=== PATIENT | female | born 1985 | race African-American/Black ===

== ENCOUNTER 2016-11-13 09:43 | Outpatient (CLI) | payer OTHER ==
[2016-11-13] VITALS (25 sets, daily range): BP systolic 134–180; BP diastolic 69–111
[~2016-11-13] VITALS: Ht 170.2 cm; Wt 131.5 kg
[~2016-11-13 09:43] MED LIST: ATIVAN1 MG PO; COLACE100 MG PO; ENDOCET 5-3251 EACH PO; FEOSOL325 MG PO; IBUPROFEN800 MG PO; LABETALOL HCL200 MG PO; MACROBID100 MG PO; Macrobid PO; NIFEDIPINE ER60 MG PO; NOHOMEMEDS; PHENERGAN25 MG PR; PRENATAL TABLE1 EAC3 PO; REGLAN10 MG PO; TAMIFLU75 MG PO; TYLENOL EXTRA500 MG PO; Tamiflu PO; ZOFRAN ODT4 MG PO
[2016-11-13 10:53] LABS: ADD MIUA? YES; BILIRUBIN NEGATIVE; BLOOD MODERATE; COLOR DK YELLOW ((YELLOW)); GLUCOSE (STRIP) NEGATIVE; KETONES 15; LEUKOCYTES TRACE; NITRITE NEGATIVE; PH, URINE 6.5 (5-8); PROTEIN (STRIP) TRACE; SPECIFIC GRAVITY 1.023 (1.000-1.030)
[2016-11-13 11:04] LABS: EOSINOPHIL (%) 0.4 % (0-5); HEMATOCRIT 37.4 % (36.0-46.0); IMMATURE GRANULOCYTE (%) 0.4 % (0.0-0.7); LYMPHOCYTE COUNT 2.4 K/uL (1.0-2.8); MCH 30.2 PG (29.0-34.0); MCV 88.8 FL (83-99); MONOCYTE (%) 8.9 % (3-12); MONOCYTE COUNT 0.8 K/uL (0-0.8); NEUTROPHIL (%) 62.1 % (45-76); NEUTROPHIL COUNT 5.3 K/uL (1.8-6.4); PLATELET COUNT 286 K/uL (156-360); RBC DIS.WIDTH-CV 14.7 % (11.8-14.6); RBC DIS.WIDTH-SD 47.8 % (39-53); RED BLOOD COUNT 4.21 M/uL (3.80-5.20); WHITE BLOOD COUNT 8.5 K/uL (4.1-10.2)
[2016-11-13 11:10] LABS: BACTERIA 2+; CRYSTALS NONE SEEN; PATHOLOGICAL CAST NONE SEEN; RED BLOOD CELLS 20-30 /HPF (0-5); SMALL ROUND CELL NONE SEEN; YEAST-LIKE CELL NONE SEEN
[2016-11-13 11:22] LABS: FIBRINOGEN 290 MG/DL (160-450); PROTHROMBIN TIME 10.4 (9.2-11.2); PTT 27.1 (25-32)
[2016-11-13 11:25] LABS: AMPHETAMINES QUANT VALUE 0 NG/ML; BARBITUATES QUANT VALUE 0 NG/ML; BENZODIAZEPINES QUANT VALUE 0 NG/ML; BENZODIAZEPINES, URINE SCREEN Negative (200 ng/mL); OPIATES QUANTITATIVE VALUE 0 NG/ML; PHENCYCLIDINE QUANT VALUE 0 NG/ML
[2016-11-13 11:28] LABS: EPITHELIAL CELLS 3+; MUCUS 2+
[2016-11-13 11:29] LABS: CASTS NONE SEEN /LPF
[2016-11-13 11:35] LABS: ANION GAP 8 MEQ/L (2-14); CHLORIDE 102 MEQ/L (99-109); POTASSIUM 3.4 MEQ/L (3.7-5.4); SAMPLE HEMOLYSIS CHECK 0; SAMPLE ICTERIC CHECK 0; SAMPLE LIPEMIA CHECK 0; SODIUM 133 MEQ/L (136-147)
[2016-11-13 11:40] LABS: ALKALINE PHOSPHATASE 52 IU/L (3-129); GFR ESTIMATE (CALCULATED) > 59 mL/min/; GLUCOSE 86 mg/dL (70-99); LACTATE DEHYDROGENASE 129 IU/L (20-246); UREA NITROGEN (BUN) 5 mg/dL (9-23); URIC ACID 6.7 mg/dL (3.1-9.2)
[2016-11-13 11:41] LABS: UR CREATININE CONCENTRATION 357.2 MG/DL
[2016-11-14 10:04] LABS: TREPONEMA ANTIBODY NEGATIVE (NEGATIVE)
[2016-11-14 12:05] LABS: HBSG INDEX 0.21
[2016-11-14 12:06] LABS: HIV INDEX 0.08; HIV-1/2 AB/AG COMBO Nonreactive
[2016-11-15 13:44] LABS: CHLAMYDIA TRACHOMATIS NEGATIVE; NEISSERIA GONORRHOEAE NEGATIVE
== END 2016-11-13 18:11 | disposition designated cancer center or children's hospital, planned readmission (85) ==
LOC: LDRP-OP 09:43 → EDSTATUS 09:44 → 2WEST 09:44
PROVIDERS: Obstetrics & Gynecology
DX: R10.9 Unspecified abdominal pain (principal); O36.8120 Decreased fetal movements, second trimester, not applicable or unspecified; O99.89 Other specified diseases and conditions complicating pregnancy, childbirth and the puerperium; Z3A.23 23 weeks gestation of pregnancy
CPT/HCPCS: 59025; 76805; 80053; 81003; 82570; 83615; 84156; 84550; 85025; 85384; 85610; 85730; 86703; 86762; 86780; 86850; 86900; 86901; 87086; 87340; 87491; 87591; G0378; J3475; J7120

== ENCOUNTER 2018-02-12 02:02 | Inpatient (IN) | payer OTHER ==
[~2018-02-12] VITALS: Ht 170.2 cm; Wt 136.3 kg
[2018-02-12 03:11] LABS: MCH 30.9 PG (29.0-34.0); MCV 88.3 FL (83-99); PLATELET COUNT 247 K/uL (156-360); RBC DIS.WIDTH-CV 12.9 % (11.8-14.6); RBC DIS.WIDTH-SD 42.1 % (39-53); RED BLOOD COUNT 4.53 M/uL (3.80-5.20)
[2018-02-12 03:20] LABS: ALBUMIN 3.8 g/dL (3.2-4.8); CHLORIDE 108 mEq/L (99-109); POTASSIUM 3.6 mEq/L (3.7-5.4); SODIUM 137 mEq/L (136-147)
[2018-02-12 03:22] LABS: GLUCOSE 122 mg/dL (70-99)
[2018-02-12 03:23] LABS: TOTAL PROTEIN 7.1 g/dL (6.4-8.3)
[2018-02-12 03:24] LABS: TOTAL BILIRUBIN 1.1 mg/dL (0.0-1.0)
[2018-02-12 03:26] LABS: ALKALINE PHOSPHATASE 81 IU/L (3-129); CREATININE 0.9 mg/dL (0.6-1.3); GFR ESTIMATE (CALCULATED) > 59 mL/min/
[2018-02-12 03:27] LABS: UREA NITROGEN (BUN) 8 mg/dL (9-23)
[2018-02-12 03:28] LABS: AST (GOT) 13 IU/L (2-34)
[2018-02-12 03:29] LABS: ALT (GPT) 13 IU/L (3-49)
[2018-02-12 03:34] LABS: MONOSPOT (MONONUCLEOSIS SEROL) NEGATIVE
[2018-02-12 03:35] LABS: QUANTITATIVE HCG < 4.0 MIU/ML
[2018-02-12 05:43] LABS: BASOPHIL (%) 0.4 % (0-1); BASOPHIL COUNT 0.1 K/uL (0-0.1); EOSINOPHIL (%) 0 % (0-5); IMMATURE GRANULOCYTE (%) 1.5 % (0.0-0.7); LYMPHOCYTE (%) 3.8 % (15-42); LYMPHOCYTE COUNT 0.8 K/uL (1.0-2.8); MONOCYTE (%) 8.3 % (3-12); MONOCYTE COUNT 1.6 K/uL (0-0.8); NEUTROPHIL COUNT 16.9 K/uL (1.8-6.4)
[2018-02-12 10:30] VITALS: BP 175/96
[2018-02-12 11:44] VITALS: BP 147/87
[2018-02-12 15:25] VITALS: BP 143/90
[2018-02-12 20:21] VITALS: BP 183/96
[2018-02-13] VITALS (7 sets, daily range): BP systolic 160–181; BP diastolic 80–109
[2018-02-13 07:11] LABS: HEMATOCRIT 40.6 % (36.0-46.0); HEMOGLOBIN 13.5 G/DL (11.9-15.5); MCH 29.2 PG (29.0-34.0); MCHC 33.3 G/DL (30.0-36.0); MCV 87.7 FL (83-99); PLATELET COUNT 260 K/uL (156-360); RBC DIS.WIDTH-CV 12.9 % (11.8-14.6); RBC DIS.WIDTH-SD 41.9 % (39-53); RED BLOOD COUNT 4.63 M/uL (3.80-5.20); WHITE BLOOD COUNT 18.7 K/uL (4.1-10.2)
[2018-02-13 07:48] LABS: CHLORIDE 110 MEQ/L (99-109); CREATININE 0.7 MG/DL (0.6-1.3); GFR ESTIMATE (CALCULATED) > 59 mL/min/; GLUCOSE 141 mg/dL (70-99); POTASSIUM 4.4 MEQ/L (3.7-5.4); SODIUM 140 MEQ/L (136-147); UREA NITROGEN (BUN) 12 mg/dL (9-23)
[2018-02-13 08:00] LABS: ALBUMIN 3.5 G/DL (3.2-4.8); ALKALINE PHOSPHATASE 67 IU/L (3-129); ALT (GPT) 10 IU/L (3-49); AST (GOT) 10 IU/L (2-34); DIRECT BILIRUBIN 0.2 mg/dL (0.0-0.3); TOTAL BILIRUBIN 0.6 MG/DL (0.0-1.0); TOTAL PROTEIN 6.3 G/DL (6.4-8.3)
[2018-02-14 04:15] VITALS: BP 170/85
[2018-02-14 05:31] LABS: BASOPHIL (%) 0.1 % (0-1); EOSINOPHIL (%) 0 % (0-5); HEMATOCRIT 39.3 % (36.0-46.0); IMMATURE GRANULOCYTE (%) 2.1 % (0.0-0.7); LYMPHOCYTE (%) 8.5 % (15-42); LYMPHOCYTE COUNT 1.3 K/uL (1.0-2.8); MCH 29.3 PG (29.0-34.0); MCHC 33.1 G/DL (30.0-36.0); MCV 88.7 FL (83-99); MONOCYTE (%) 5.2 % (3-12); MONOCYTE COUNT 0.8 K/uL (0-0.8); NEUTROPHIL (%) 84.1 % (45-76); PLATELET COUNT 289 K/uL (156-360); RBC DIS.WIDTH-CV 13.2 % (11.8-14.6); RBC DIS.WIDTH-SD 43.1 % (39-53); RED BLOOD COUNT 4.43 M/uL (3.80-5.20); WHITE BLOOD COUNT 15.5 K/uL (4.1-10.2)
[2018-02-14 06:02] LABS: CHLORIDE 111 MEQ/L (99-109); CREATININE 0.9 MG/DL (0.6-1.3); GFR ESTIMATE (CALCULATED) > 59 mL/min/; GLUCOSE 138 mg/dL (70-99); POTASSIUM 4.1 MEQ/L (3.7-5.4); SODIUM 142 MEQ/L (136-147); UREA NITROGEN (BUN) 16 mg/dL (9-23)
[2018-02-14 07:05] VITALS: BP 175/108
[2018-02-14 15:40] VITALS: BP 197/119
[2018-02-14 17:45] VITALS: BP 178/111
[2018-02-14 19:12] VITALS: BP 166/96
[2018-02-15] VITALS (7 sets, daily range): BP systolic 138–182; BP diastolic 84–94
[2018-02-15 06:43] LABS: HEMATOCRIT 39.4 % (36.0-46.0); HEMOGLOBIN 13.2 G/DL (11.9-15.5); MCH 29.1 PG (29.0-34.0); MCHC 33.5 G/DL (30.0-36.0); PLATELET COUNT 314 K/uL (156-360); RBC DIS.WIDTH-CV 13.1 % (11.8-14.6); RBC DIS.WIDTH-SD 41.5 % (39-53); RED BLOOD COUNT 4.53 M/uL (3.80-5.20); WHITE BLOOD COUNT 17.2 K/uL (4.1-10.2)
[2018-02-15 07:10] LABS: CHLORIDE 107 MEQ/L (99-109); CREATININE 0.8 MG/DL (0.6-1.3); GFR ESTIMATE (CALCULATED) > 59 mL/min/; POTASSIUM 3.8 MEQ/L (3.7-5.4); SODIUM 141 MEQ/L (136-147); UREA NITROGEN (BUN) 12 mg/dL (9-23)
[2018-02-15 07:12] LABS: GLUCOSE 100 mg/dL (70-99)
[2018-02-15 07:23] LABS: ABS NEUTROPHIL COUNT 12.2; ATYPICAL LYMPHOCYTE 2.6 %; BAND NEUTROPHILS 2.6 % (0-8.0); EOSINOPHIL ABS CT 0; LYMPHOCYTES 21.9 % (15.0-45.0); MONOCYTES 2.6 % (0-9.0); MYELOCYTES 1.8 %; PLAT.SUFFICIENCY ADEQUATE; SEG.NEUTROPHILS 68.5 % (46.0-76.0)
[2018-02-16 00:22] VITALS: BP 132/81
[2018-02-16 04:03] VITALS: BP 154/91
[2018-02-16 07:25] VITALS: BP 157/108
[2018-02-16 11:50] VITALS: BP 158/88
[2018-02-16] MEDS ORDERED: AUGMENTIN875 MG PO (11:57)
[2018-02-16] MEDS ORDERED: NIFEDIPINE ER30 MG PO (12:33)
[2018-02-16] MEDS ORDERED: TYLENOL REGULA325 MG PO (12:33)
[2018-02-16] MEDS ORDERED: LABETALOL HCL200 MG PO (12:33)
[2018-02-16] MEDS ORDERED: PREDNISONE10 MG PO (12:39)
[2018-02-16] MEDS ORDERED: PEPCID20 MG PO (12:40)
== END 2018-02-16 13:51 | disposition home or self-care (01) | DRG 153 ==
LOC: EME → EDBD 02:02 → EXP 02:02 → EDOF 08:52 → 2EAST 08:52 → ENRESERV 08:54 → 2EAST 10:32
PROVIDERS: Internal Medicine; Physician Assistant; Student in an Organized Health Care Education/Training Program
PROC: 0CJS8ZZ Inspection of Larynx, Via Natural or Artificial Opening Endoscopic (ICD-10-PCS; principal; 2018-02-12)
DX: J03.00 Acute streptococcal tonsillitis, unspecified (principal); R78.81 Bacteremia; J05.10 Acute epiglottitis without obstruction; B95.0 Streptococcus, group A, as the cause of diseases classified elsewhere; I10 Essential (primary) hypertension; E66.01 Morbid (severe) obesity due to excess calories; Z91.19 Patient's noncompliance with other medical treatment and regimen; I16.0 Hypertensive urgency; Z68.42 Body mass index [BMI] 45.0-49.9, adult
CPT/HCPCS: 70491; 80048; 80053; 80076; 82948; 83605; 84702; 85025; 85027; 85651; 86308; 87040; 87077; 87186; 87651 90; 87801; 94640; 94640 76; 94799; 99202; 99281; 99285; J0295; J0360; J1100; J1650; J1885; J2540; J2543; J3010; J3370; J7030; J7042; J7050; J7512